=== PATIENT | female | born 1985 | race Caucasian/White ===

== ENCOUNTER 2019-03-08 15:10 | Emergency (ER) | payer BC ==
[~2019-03-08] VITALS: Ht 162.6 cm; Wt 89.4 kg
[2019-03-08 15:18] VITALS: Ht 162.6 cm; Wt 89.4 kg
[2019-03-08 17:14] LABS: CALCIUM 9.1 mg/dL (8.5-10.1); CARBON DIOXIDE 26.8 mmol/L (21-32); CHLORIDE SERUM 103 mmol/L (98-107); CREATININE SERUM 0.6 mg/dL (0.6-1.0); GFR1 > 60 mL/min; GLUCOSE SERUM 97 mg/dL (74-106); POTASSIUM SERUM 3.4 mmol/L (3.5-5.1); SODIUM SERUM 139 mmol/L (136-145)
[2019-03-08 17:18] LABS: ALBUMIN 3.5 g/dL (3.4-5.0); ALKALINE PHOSPHATASE 36 U/L (46-116); ALT/SGPT 36 U/L (14-59); AST/SGOT 11 U/L (15-37); BILIRUBIN TOTAL 0.3 mg/dL (0.20-1.00); TOTAL PROTEIN, SERUM 7.5 g/dL (6.4-8.2)
[2019-03-08 17:21] LABS: BASOPHIL % 0.4 % (0-2); RED CELL DISTRIBUTION WIDTH 12.8 % (11.5-14.5)
[2019-03-08 17:23] LABS: PLATELET COUNT 416 x10^3mcL (130-400)
[2019-03-08 20:34] LABS: UA SPECIFIC GRAVITY >=1.030 (1.005-1.035); microscopic required? YES; urine erythrocyte 3+ (NEGATIVE)
[2019-03-08 23:27] VITALS: BP 114/83
== END 2019-03-08 23:50 | disposition home or self-care (01) ==
LOC: ED 15:10
PROVIDERS: Emergency Medicine
DX: R10.2 Pelvic and perineal pain (principal); R35.0 Frequency of micturition; R10.31 Right lower quadrant pain; R10.32 Left lower quadrant pain
CPT/HCPCS: 36415; 87804; J1885

== ENCOUNTER 2019-08-06 18:56 | Emergency (ER) | payer BC, SELFPAY ==
[~2019-08-06] VITALS: Ht 157.5 cm; Wt 83.5 kg
[2019-08-06 19:42] VITALS: Ht 157.5 cm; Wt 83.5 kg
[2019-08-06 21:54] LABS: C REACTIVE PROTEIN 0.6 mg/dL (<=0.9)
[2019-08-07 00:09] VITALS: BP 111/74
== END 2019-08-07 00:10 | disposition home or self-care (01) ==
LOC: ED 18:56
PROVIDERS: Specialist
DX: U07.1 COVID-19 (principal); Z98.890 Other specified postprocedural states
CPT/HCPCS: 87804; J1885; U0003-CS